=== PATIENT | male | born 1990 | race Caucasian/White ===

== ENCOUNTER 2018-02-21 15:49 | Inpatient (IN) | payer OTHER ==
[~2018-02-21] VITALS: Ht 172.7 cm; Wt 82.3 kg
[2018-02-21 19:30] VITALS: PULSE 85
[2018-02-21 19:55] VITALS: Ht 172.7 cm; Wt 82.3 kg
[2018-02-21 20:00] VITALS: PULSE 88
[2018-02-21 20:13] VITALS: BP 146/84; RESP 20
[2018-02-21] MEDS ORDERED: LORAZEPAM 4 MG/ML VIAL IV PRN ×2 (20:30→22:00)
[2018-02-21] MEDS ORDERED: NACL 0.9% 3 ML SYG IV SCH (20:30)
[2018-02-21] MEDS ORDERED: PANTOPRAZOLE IV 80 MG in SOD CHLORIDE 0.9% 100 ML IVPB ONE (20:30)
[2018-02-21] MEDS: ONDANSETRON 4 MG INJ IV PRN (20:42)
[2018-02-21] MEDS: SOD CHLORIDE 0.9% 1,000 ML IV SCH (20:56)
[2018-02-21] MEDS: THIAMINE 200 MG INJ IM SCH (21:30)
--- NOTE | 2018-02-21 21:43 | HP ---
Date/Time of Note Date/Time of Note DATE: 02/21/18 TIME: 21:36 Assessment/Plan VTE Prophylaxis Risk score (from Nsg)>0 risk: 0 SCD applied (from Ns): Yes Pharmacological prophylaxis: NA/contraindicated Pharm contraindication: bleeding, thrombocytopenia Assessment/Plan Hospital Course This is a 27-year-old male being admitted to the telemetry floor for: #1 acute GI bleed: Secondary likely to bleeding varices versus ulcer versus other. Patient does have a history of heavy alcohol use. He does report having hematemesis as well as melena. Will initiate a Protonix drip and Sandostatin drip. Will check stat CBC and monitor closely every 6 hours. Patient did have a reduced platelet count of approximately 12,000 at the transferring facility and he did receive 1 unit of platelets there. We will recheck platelets and consider additional platelets as indicated. Clear liquid diet. Will consult GI Dr. Soto. #2 alcohol intoxication: Patient at the current time is awake and alert he does appear to be anxious and tremulous. Will start him on Librium as well as as needed Ativan. Thiamine and folate daily. Monitor for signs of DTs. Encouraged cessation. The case management/social work consult #3 alcoholic cirrhosis: Maddrey score is 19. Patient does have a history of no indication for any steroids at the current time. Librium and Ativan. We will need to encourage cessation. Consult GI for further recommendations. #4 history of esophageal varices: Possibly causing #1. Again we will consult GI. Current time we will keep the patient on Protonix drip and Sandostatin drip. #5 severe thrombocytopenia: Patient did present with platelets of approximately 12,000. He received 1 unit transfusion of platelets at the transferring facility. Will repeat CBC, and transfuse additional platelets as indicated. He does appear to have blood in his oral cavity unsure whether this is from his earlier episodes or from gums. #6 anxiety with phobia: The patient reports that he has a history of anxiety in the past and possible phobia of being alone for which is the reason why he dr inks apparently. Consider inpatient psychiatric evaluation. #7 DVT and GI prophylaxis: SCDs, Protonix drip Further treatment strategy will be implemented as per the clinical course. Result Diagram: 02/21/18202902/21/182029 Results 24hrs Laboratory Tests Test 02/21/18 20:30 White Blood Count 4.1 L Red Blood Count 3.74 L Hemoglobin 10.7 L Hematocrit 33.2 L Mean Corpuscular Volume 88.8 Mean Corpuscular Hemoglobin 28.6 L Mean Corpuscular Hemoglobin Concent 32.2 Red Cell Distribution Width 15.4 H Platelet Count 15 *L Mean Platelet Volume 12.9 H Immature Granulocytes % 0.200 Neutrophils % Lymphocytes % Monocytes % Eosinophils % Basophils % Nucleated Red Blood Cells % 0.0 Immature Granulocytes # 0.010 Neutrophils # Lymphocytes # Monocytes # Eosinophils # Basophils # Nucleated Red Blood Cells # Pathologist Review (Hematology) YES Prothrombin Time 15.7 H Prothrombin Time Ratio 1.2 INR International Normalized Ratio 1.23 Activated Partial Thromboplast Time 39.9 H Sodium Level 142 Potassium Level 3.9 Chloride Level 107 Carbon Dioxide Level 22 Anion Gap 13 Blood Urea Nitrogen 5 L Creatinine 0.50 L Est Glomerular Filtrat Rate mL/min > 60 Glucose Level 82 Hemoglobin A1c 5.0 Calcium Level 9.0 Magnesium Level 2.2 Total Bilirubin 1.9 H Direct Bilirubin 0.00 Indirect Bilirubin 1.9 H Aspartate Amino Transf (AST/SGOT) 145 H Alanine Aminotransferase (ALT/SGPT) 71 H Alkaline Phosphatase 123 H Total Protein 9.5 H Albumin 4.7 Globulin 4.80 H Albumin/Globulin Ratio 0.97 Triglycerides Level 88 Cholesterol Level 266 H LDL Cholesterol, Calculated 150 HDL Cholesterol 98 H Cholesterol/HDL Ratio 2.7 Thyroid Stimulating Hormone (TSH) Pending HPI/ROS Admit Date/Time Admit Date/Time Feb 21, 2018 at 19:12 Hx of Present Illness Chief complaint: Weakness vomiting This is a 27-year-old male with a history of alcohol abuse who presented from [facility] with symptoms of weakness and vomiting. He is a daily drinker of 6 pack of beer daily and has a history of hemorrhagic gastritis and esophageal varices based on his EGD as per the transfer document patient. He presented to the [facility] emergency room because of bloody stools and generalized weakness and generalized malaise. He reported that he had been doing fine up until 3 days ago at which point he started having multiple episodes of vomiting. He had 2 episodes of vomiting yesterday that was blood- tinged without blood clots. He also reported that he has noticed some blood in stool over the past 24 hours. Upon my examination the patient when he arrived to [facility] patient reports that his last episode of vomiting blood was yesterday. He reports that he has been drinking for approximately 6 years. He states that drinking helps with his anxiety/PTSD. He reports that he has a phobia to being alone. He has not sought any sort of psychiatric help for this. He does report feeling anxious at the current time and tremulous. Pertinent laboratory findings at the transfer facility showed: CBC White blood cells 3.9 hemoglobin 13.2 platelets 12 hematocrit 40 PT 15.2 Alk phos 113 AST 176 ALT 78 next Patient had a stool guaiac that was positive Ethanol level was 244 The patient was given a total of 1 unit of platelets transfusion prior to being transferred. ROS Const: As per HPI Eyes : No pain discharge or redness or change in visual acuity ENT: No pain, sore throat, congestion, congestion, dysphagia or discharge Respiratory: No shortness of breath, cough, sputum, wheezing, or pleuritic pain Cardiovascular: No chest pain, palpitation, PND, or edema GI : as per HPI Genitourinary: No dysuria, hematuria, flank pain , discharge or CVA tenderness Musculoskeletal: No joint pain, back pain, neck pain, restricted range of motion in neck or joints Skin: No rash, bruising or hives Neuro: No headache, dizziness, syncope, seizure, focal weakness Endocrine: No polyuria, polydipsia, temperature intolerance Psych: As per HPI PMH/Family/Social Past Medical History Chronic alcohol abuse, alcoholic cirrhosis, portal gastropathy, esophageal varices, hemorrhagic gastritis, number cytopenia, alcohol withdrawal seizures, anemia Medications Current Medications Sodium Chloride 1,000 ml @ 50 mls/hr Q20H IV Last administered on 02/21/18at 20:56; Admin Dose 50 MLS/HR; Start 02/21/18 at 20:07 IV Flush (NS 3 ml) 3 ml PER PROTOCOL IV ; Start 02/21/18 at 20:30 Lorazepam (Ativan) 0.5 mg Q6H PRN IV ANXIETY Last administered on 02/21/18at 20:43; Admin Dose 0.5 MG; Start 02/21/18 at 20:30 Ondansetron HCl (Zofran Inj) 4 mg Q6H PRN IV NAUSEA AND/OR VOMITING Last administered on 02/21/18at 20:42; Admin Dose 4 MG; Start 02/21/18 at 20:30 Metoclopramide HCl (Reglan) 10 mg Q6H PRN IV NAUSEA AND/OR VOMITING; Start 02/21/18 at 20:30 Pantoprazole (Protonix Iv) 40 mg DAILY@06 IV ; Start 02/22/18 at 06:00 Thiamine HCl (Vitamin B1) 200 mg DAILY IM ; Start 02/21/18 at 21:30; Stop 02/26/18 at 21:29 Folic Acid (Folic Acid) 1 mg DAILY PO ; Start 02/21/18 at 20:30 Coded Allergies: No Known Allergy (Unverified , 02/21/18) Past Surgical History Past Surgical Hx: no surgical history Family History Significant Family History: no pertinent family hx Social History Alcohol Use: heavy Smoking Status: Never smoker Drug Use: none Exam/Review of Systems Vital Signs Vitals Vital Signs Date Temp Pulse Resp B/P (MAP) Pulse Ox O2 O2 Flow FiO2 Time Delivery Rate 02/21/18 98.4 20 146/84 98 20:13 (104) 02/21/18 88 20:00 Exam Exam General: Patient is a pleasant male currently sitting in bed he does appear to be anxious and tremulous, does not appear to be in any acute distress HEENT: Atraumatic, normocephalic. The pupils are equal, round and reactive. Extraocular motor are intact, blood-tinge noted around the teeth Neck: Supple with full range of motion. No rigidity or meningismus Chest: Nontender Lungs: Clear to auscultation bilaterally no crackles rales or wheezing Heart: Normal S1-S2, Regular rhythm and rate. No murmur, S3, or S4 Abdomen: Soft , nontender, nondistended , bowel sounds are present. No guarding no rebound tenderness , No masses or organomegaly. No costovertebral temporal angle mass Extremities: Normal to inspection, no edema no cyanosis Neurologic: Normal mental status, speech normal, cranial nerves II through XII are intact, motor and sensory are intact, Psych: Patient does appear to be anxious and tremulous EVELYN CALLE Feb 21, 2018 21:43
[2018-02-21] MEDS: CHLORDIAZEPOXIDE 25 MG CAP PO SCH (22:51)
[2018-02-21] MEDS: FOLIC ACID 1 MG TAB PO SCH (22:51)
[2018-02-21] MEDS ORDERED: OCTREOTIDE 50 MCG in SOD CHLORIDE 0.9% 50 ML IVPB ONE (23:00)
[2018-02-21 23:58] VITALS: BP 117/61; RESP 20
[2018-02-22] VITALS (11 sets, daily range): BP systolic 95–139; BP diastolic 60–75; PULSE 65–86; RESP 18–20
--- NOTE | 2018-02-22 | NUR ---
NURSING NOTE: ENDORSED CONTINUUM OF CARE TO BHARGAV ALATORRE Addendum: 02/22/18 at 0350 by ANA YUAN RN ENDORSED CONTINUUM OF CARE TO YOKO ALATORRE
[2018-02-22] MEDS ORDERED: LORAZEPAM 4 MG/ML VIAL IV PRN (00:30)
[2018-02-22] MEDS: OCTREOTIDE 1 MG in DEXTROSE 5% 95 ML IV SCH ×2 (00:31→18:09)
[2018-02-22] MEDS: ONDANSETRON 4 MG INJ IV PRN ×2 (02:44→14:25)
[2018-02-22] MEDS: LORAZEPAM 4 MG/ML VIAL IV PRN ×2 (05:30→21:03)
[2018-02-22] MEDS: PANTOPRAZOLE 40 MG INJ IV SCH (05:31)
--- NOTE | 2018-02-22 06:30 | NUR ---
End of Shift Summary Pt has been nauseous during the night. Pt had one episode of vomiting. Please see pt assessment and EMAR.
[2018-02-22] MEDS: CHLORDIAZEPOXIDE 25 MG CAP PO SCH ×3 (08:33→21:02)
[2018-02-22] MEDS: FOLIC ACID 1 MG TAB PO SCH (08:33)
[2018-02-22] MEDS: METOCLOPRAMIDE 10 MG INJ IV PRN ×2 (08:34→21:03)
[2018-02-22] MEDS: THIAMINE 200 MG INJ IM SCH (08:34)
[2018-02-22] MEDS ORDERED: FOLIC ACID 1 MG TAB PO SCH (12:00)
--- NOTE | 2018-02-22 12:10 | PN ---
Date/Time of Note Date/Time of Note DATE: 02/22/18 TIME: 12:07 Assessment/Plan VTE Prophylaxis Risk score (from [facility])>0 risk: 1 SCD applied (from [facility]): Yes Pharmacological prophylaxis: NA/contraindicated Pharm contraindication: bleeding Lines/Catheters IV [facility] (from [facility]): Peripheral IV Assessment/Plan Problems: (1) GI bleed Status: Acute Comment: Follow CBC and can ask gastroenterology to see the patient consultation given the known history of varices Qualifiers: Gastritis type: alcoholic (2) Esophageal varices Status: Chronic Comment: Possibly with bleeding. Continue treatment aggressively Qualifiers: Esophageal varices type: secondary Esophageal varices bleeding: with bleeding Qualified Codes: I85.11 - Secondary esophageal varices with bleeding (3) Thrombocytopenia Status: Acute Comment: I believe some of this is from the liver but I also believe some of this is an acute toxic metabolic effect of the alcohol on the bone marrow (4) Alcoholic cirrhosis of liver Status: Chronic Comment: Noted. Attempt to arrange for treatment of the underlying anxiety disorder and for outpatient rehabilitation Qualifiers: Ascites presence: without ascites Qualified Codes: K70.30 - Alcoholic cirrhosis of liver without ascites (5) Moderate early onset dysthymic disorder, in partial remission, with anxious distress, with pure dysthymic syndrome Status: Chronic Comment: In need of treatment. (6) Hyperlipidemia Status: Chronic Comment: Noted. Treatment for this after we have got the other issues settled Qualifiers: Hyperlipidemia type: unspecified Qualified Codes: E78.5 - Hyperlipidemia, unspecified (7) Alcohol abuse Status: Chronic Comment: Strongly counseled. Result Diagram: 02/22/18 0556 02/21/182029 Results 24hrs Laboratory Tests Test 02/21/18 20:30 02/22/18 05:56 White Blood Count 4.1 L 4.2 L Red Blood Count 3.74 L 3.49 L Hemoglobin 10.7 L 10.3 L Hematocrit 33.2 L 31.0 L Mean Corpuscular Volume 88.8 88.8 Mean Corpuscular Hemoglobin 28.6 L 29.5 Mean Corpuscular Hemoglobin Concent 32.2 33.2 Red Cell Distribution Width 15.4 H 15.2 H Platelet Count 15 *L 38 #L Mean Platelet Volume 12.9 H 11.1 H Immature Granulocytes % 0.200 0.200 Neutrophils % 71.6 Segmented Neutrophils % (Manual) 64 Lymphocytes % 16.7 Lymphocytes % (Manual) 29 Reactive Lymphocytes % (Manual) 1 H Monocytes % 9.5 Monocytes % (Manual) 3 Eosinophils % 1.0 Eosinophils % (Manual) 2 Basophils % 1.0 Basophils % (Manual) 1 Nucleated Red Blood Cells % 0.0 0.0 Immature Granulocytes # 0.010 0.010 Neutrophils # 3.0 Lymphocytes (Manual) 1.1 Lymphocytes # 0.7 L Reactive Lymphocytes # 0.0 Monocytes # 0.4 Monocytes # (Manual) 0.1 L Eosinophils # 0.0 Basophils # 0.0 Basophils # (Manual) 0.0 Nucleated Red Blood Cells # 0.0 Pathologist Review (Hematology) YES Giant Platelets 1 H Prothrombin Time 15.7 H Prothrombin Time Ratio 1.2 INR International Normalized Ratio 1.23 Activated Partial Thromboplast Time 39.9 H Sodium Level 142 Potassium Level 3.9 Chloride Level 107 Carbon Dioxide Level 22 Anion Gap 13 Blood Urea Nitrogen 5 L Creatinine 0.50 L Est Glomerular Filtrat Rate mL/min > 60 Glucose Level 82 Hemoglobin A1c 5.0 Calcium Level 9.0 Magnesium Level 2.2 Total Bilirubin 1.9 H Direct Bilirubin 0.00 Indirect Bilirubin 1.9 H Aspartate Amino Transf (AST/SGOT) 145 H Alanine Aminotransferase (ALT/SGPT) 71 H Alkaline Phosphatase 123 H Total Protein 9.5 H Albumin 4.7 Globulin 4.80 H Albumin/Globulin Ratio 0.97 Triglycerides Level 88 Cholesterol Level 266 H LDL Cholesterol, Calculated 150 HDL Cholesterol 98 H Cholesterol/HDL Ratio 2.7 Thyroid Stimulating Hormone (TSH) 1.110 Hepatitis B Surface Antigen NEGATIVE Hepatitis B Surface Antibody POSITIVE H Hepatitis B Core Total Antibody NEGATIVE Hepatitis C Antibody NEGATIVE Subjective 24 Hr Interval Summary Free Text/Dictation She notes anxiety and is concerned for the GI bleed. Constitutional: no complaints Cardiovascular: no complaints Gastrointestinal: pain Genitourinary: no complaints Psychological: anxiety Exam/Review of Systems Vital Signs Vitals Vital Signs Date Temp Pulse Resp B/P (MAP) Pulse Ox O2 O2 Flow FiO2 Time Delivery Rate 02/22/18 97.9 86 18 95/61 (72) 100 Mechanical 11:40 Ventilator Intake and Output 02/21/18 02/21/18 02/22/18 1414:59 22:59 06:59 OutputOutput Total 250 ml BalanceBalance -250 ml Exam Constitutional: alert, oriented Psych: anxiety Neck: supple, non-tender Respiratory: clear to auscultation, normal air movement Cardiovascular: regular rate and rhythm, nl pulses Gastrointestinal: soft, non-tender, hepatomegaly Medications Medications Current Medications Sodium Chloride 1,000 ml @ 50 mls/hr Q20H IV Last administered on 02/21/18at 20:56; Admin Dose 50 MLS/HR; Start 02/21/18 at 20:07 IV Flush (NS 3 ml) 3 ml PER PROTOCOL IV ; Start 02/21/18 at 20:30 Ondansetron HCl (Zofran Inj) 4 mg Q6H PRN IV NAUSEA AND/OR VOMITING Last administered on 02/22/18at 02:44; Admin Dose 4 MG; Start 02/21/18 at 20:30 Metoclopramide HCl (Reglan) 10 mg Q6H PRN IV NAUSEA AND/OR VOMITING Last administered on 02/22/18at 08:34; Admin Dose 10 MG; Start 02/21/18 at 20:30 Pantoprazole (Protonix Iv) 40 mg DAILY@06 IV Last administered on 02/22/18 05:31; Admin Dose 40 MG; Start 02/22/18 at 06:00 Thiamine HCl (Vitamin B1) 200 mg DAILY IM Last administered on 02/22/18 08:34; Admin Dose 200 MG; Start 02/21/18 at 21:30; Stop 02/26/18 at 21:29 Folic Acid (Folic Acid) 1 mg DAILY PO Last administered on 02/22/18at 08:33; Admin Dose 1 MG; Start 02/21/18 at 20:30 Octreotide Acetate 1 mg/ Dextrose 100 ml @ 5 mls/hr Q20H IV Last administered on 02/22/18 00:31; Admin Dose 5 MLS/HR; Start 02/21/18 at 23:00 Lorazepam (Ativan) 2 mg Q4H PRN IV severe withdrawl symptoms; Start 02/21/18 at 22:00 Chlordiazepoxide (Librium) 50 mg TID PO Last administered on 02/22/18at 08:33; Admin Dose 50 MG; Start 02/21/18 at 22:30; Stop 02/22/18 at 20:59 Chlordiazepoxide (Librium) 25 mg QID PO ; Start 02/22/18 at 21:00; Stop 02/23/18 at 20:59 Chlordiazepoxide (Librium) 25 mg TID PO ; Start 02/23/18 at 21:00; Stop 02/24/18 at 20:59 Lorazepam (Ativan) 1 mg Q4H PRN IV WITHDRAWL SYMPTOMS Last administered on 02/22/18at 05:30; Admin Dose 1 MG; Start 02/21/18 at 22:30 Cyanocobalamin (Vitamin B12) 500 mcg DAILY PO ; Start 02/22/18 at 12:00; Status UNV Folic Acid (Folic Acid) 1 mg DAILY PO ; Start 02/22/18 at 12:00; Status UNV NABIL VYAS MD Feb 22, 2018 12:10
--- NOTE | 2018-02-22 12:37 | CONS ---
Date/Time of Note Date/Time of Note DATE: 02/22/18 TIME: 12:30 Assessment/Plan Assessment/Plan Hospital Course Assessment: Hematemesis Normocytic anemia Alcoholic liver cirrhosis -MELD Indirect hyperbilirubinemia Elevated liver enzymes Thrombocytopenia History of esophageal varices Alcohol abuse-last drink 02/20/18 Plan: Clear liquid diet Continue Gtt Plan for EGD in near future Consult has already been placed for social work professor, evaluation for rehab Patient seen in collaboration with Dr. Reyes Result Diagram: 02/22/18 0556 02/21/18 2030 Results 24hrs Laboratory Tests Test 02/21/18 20:30 02/22/18 05:56 White Blood Count 4.1 L 4.2 L Red Blood Count 3.74 L 3.49 L Hemoglobin 10.7 L 10.3 L Hematocrit 33.2 L 31.0 L Mean Corpuscular Volume 88.8 88.8 Mean Corpuscular Hemoglobin 28.6 L 29.5 Mean Corpuscular Hemoglobin Concent 32.2 33.2 Red Cell Distribution Width 15.4 H 15.2 H Platelet Count 15 *L 38 #L Mean Platelet Volume 12.9 H 11.1 H Immature Granulocytes % 0.200 0.200 Neutrophils % 71.6 Segmented Neutrophils % (Manual) 64 Lymphocytes % 16.7 Lymphocytes % (Manual) 29 Reactive Lymphocytes % (Manual) 1 H Monocytes % 9.5 Monocytes % (Manual) 3 Eosinophils % 1.0 Eosinophils % (Manual) 2 Basophils % 1.0 Basophils % (Manual) 1 Nucleated Red Blood Cells % 0.0 0.0 Immature Granulocytes # 0.010 0.010 Neutrophils # 3.0 Lymphocytes (Manual) 1.1 Lymphocytes # 0.7 L Reactive Lymphocytes # 0.0 Monocytes # 0.4 Monocytes # (Manual) 0.1 L Eosinophils # 0.0 Basophils # 0.0 Basophils # (Manual) 0.0 Nucleated Red Blood Cells # 0.0 Pathologist Review (Hematology) YES Giant Platelets 1 H Prothrombin Time 15.7 H Prothrombin Time Ratio 1.2 INR International Normalized Ratio 1.23 Activated Partial Thromboplast Time 39.9 H Sodium Level 142 Potassium Level 3.9 Chloride Level 107 Carbon Dioxide Level 22 Anion Gap 13 Blood Urea Nitrogen 5 L Creatinine 0.50 L Est Glomerular Filtrat Rate mL/min > 60 Glucose Level 82 Hemoglobin A1c 5.0 Calcium Level 9.0 Magnesium Level 2.2 Total Bilirubin 1.9 H Direct Bilirubin 0.00 Indirect Bilirubin 1.9 H Aspartate Amino Transf (AST/SGOT) 145 H Alanine Aminotransferase (ALT/SGPT) 71 H Alkaline Phosphatase 123 H Total Protein 9.5 H Albumin 4.7 Globulin 4.80 H Albumin/Globulin Ratio 0.97 Triglycerides Level 88 Cholesterol Level 266 H LDL Cholesterol, Calculated 150 HDL Cholesterol 98 H Cholesterol/HDL Ratio 2.7 Thyroid Stimulating Hormone (TSH) 1.110 Hepatitis B Surface Antigen NEGATIVE Hepatitis B Surface Antibody POSITIVE H Hepatitis B Core Total Antibody NEGATIVE Hepatitis C Antibody NEGATIVE CC: PENNY REYES ; Consultation Date/Type/Reason Admit Date/Time Feb 21, 2018 at 19:12 Date of Consultation: Feb 22, 2018 Type of Consult GI Reason for Consultation Hematemesis Liver cirrhosis Hx of Present Illness This is a 27-year-old male with past medical history of alcoholic liver cirrhosis, history of esophageal varices, history of upper GI bleed, history of alcohol abuse last drink 02/20/18 who presented to the hospital with complaints of hematemesis. With workup patient noted to have pancytopenia, is status post platelet pheresis with increase in platelet count from 15-38 today. Hepatitis serology was obtained patient showing immunity to hepatitis B negative for hepat itis C, hepatitis A is currently pending, mild coagulopathy INR 1.23 and elevated LFTs with and direct hyperbilirubinemia. Time of evaluation patient is currently on octreotide drip he denies further episodes of nausea/vomiting, no complaints of abdominal pain. We will maintain close observation and simply plan for EGD near future likely Saturday. Review of Systems: A 12 system, review was conducted and is negative except as noted in the HPI or here. Past Medical History Medications Current Medications Sodium Chloride 1,000 ml @ 50 mls/hr Q20H IV Last administered on 02/21/18at 20:56; Admin Dose 50 MLS/HR; Start 02/21/18 at 20:07 IV Flush (NS 3 ml) 3 ml PER PROTOCOL IV ; Start 02/21/18 at 20:30 Ondansetron HCl (Zofran Inj) 4 mg Q6H PRN IV NAUSEA AND/OR VOMITING Last administered on 02/22/18at 02:44; Admin Dose 4 MG; Start 02/21/18 at 20:30 Metoclopramide HCl (Reglan) 10 mg Q6H PRN IV NAUSEA AND/OR VOMITING Last administered on 02/22/18at 08:34; Admin Dose 10 MG; Start 02/21/18 at 20:30 Pantoprazole (Protonix Iv) 40 mg DAILY@06 IV Last administered on 02/22/18at 05:31; Admin Dose 40 MG; Start 02/22/18 at 06:00 Thiamine HCl (Vitamin B1) 200 mg DAILY IM Last administered on 02/22/18at 08:34; Admin Dose 200 MG; Start 02/21/18 at 21:30; Stop 02/26/18 at 21:29 Folic Acid (Folic Acid) 1 mg DAILY PO Last administered on 02/22/18at 08:33; Admin Dose 1 MG; Start 02/21/18 at 20:30 Octreotide Acetate 1 mg/ Dextrose 100 ml @ 5 mls/hr Q20H IV Last administered on 02/22/18at 00:31; Admin Dose 5 MLS/HR; Start 02/21/18 at 23:00 Lorazepam (Ativan) 2 mg Q4H PRN IV severe withdrawl symptoms; Start 02/21/18 at 22:00 Chlordiazepoxide (Librium) 50 mg TID PO Last administered on 02/22/18at 08:33; Admin Dose 50 MG; Start 02/21/18 at 22:30; Stop 02/22/18 at 20:59 Chlordiazepoxide (Librium) 25 mg QID PO ; Start 02/22/18 at 21:00; Stop 02/23/18 at 20:59 Chlordiazepoxide (Librium) 25 mg TID PO ; Start 02/23/18 at 21:00; Stop 02/24/18 at 20:59 Lorazepam (Ativan) 1 mg Q4H PRN IV WITHDRAWL SYMPTOMS Last administered on 02/22/18at 05:30; Admin Dose 1 MG; Start 02/21/18 at 22:30 Cyanocobalamin (Vitamin B12) 500 mcg DAILY PO ; Start 02/22/18 at 12:00 Mirtazapine (Remeron) 15 mg HS PO ; Start 02/22/18 at 21:00 Allergies: Coded Allergies: No Known Allergy (Unverified , 02/21/18) Past Surgical History Past Surgical Hx: no surgical history Social History Alcohol Use: heavy Smoking Status: Never smoker Drug Use: none Exam/Review of Systems Vital Signs Vitals Vital Signs Date Temp Pulse Resp B/P (MAP) Pulse Ox O2 O2 Flow FiO2 Time Delivery Rate 02/22/18 97.9 86 18 95/61 (72) 100 Mechanical 11:40 Ventilator Intake and Output 02/21/18 02/21/18 02/22/18 1515:00 23:00 07:00 OutputOutput Total 250 ml BalanceBalance -250 ml Exam Constitutional: alert, oriented Psych: no complaints, nl mood/affect Head: normocephalic ENMT: nl external ears & nose Neck: supple, non-tender Respiratory: clear to auscultation Cardiovascular: regular rate and rhythm Gastrointestinal: soft, bowel sounds; No distended, No firm, No mass, No rebound or guarding, No splenomegaly, No surgical scars Musculoskeletal: nl extremities to inspection Medications Medications Current Medications Sodium Chloride 1,000 ml @ 50 mls/hr Q20H IV Last administered on 02/21/18at 20:56; Admin Dose 50 MLS/HR; Start 02/21/18 at 20:07 IV Flush (NS 3 ml) 3 ml PER PROTOCOL IV ; Start 02/21/18 at 20:30 Ondansetron HCl (Zofran Inj) 4 mg Q6H PRN IV NAUSEA AND/OR VOMITING Last administered on 02/22/18at 02:44; Admin Dose 4 MG; Start 02/21/18 at 20:30 Metoclopramide HCl (Reglan) 10 mg Q6H PRN IV NAUSEA AND/OR VOMITING Last a dministered on 02/22/18at 08:34; Admin Dose 10 MG; Start 02/21/18 at 20:30 Pantoprazole (Protonix Iv) 40 mg DAILY@06 IV Last administered on 02/22/18at 05:31; Admin Dose 40 MG; Start 02/22/18 at 06:00 Thiamine HCl (Vitamin B1) 200 mg DAILY IM Last administered on 02/22/18at 08:34; Admin Dose 200 MG; Start 02/21/18 at 21:30; Stop 02/26/18 at 21:29 Folic Acid (Folic Acid) 1 mg DAILY PO Last administered on 02/22/18at 08:33; Admin Dose 1 MG; Start 02/21/18 at 20:30 Octreotide Acetate 1 mg/ Dextrose 100 ml @ 5 mls/hr Q20H IV Last administered on 02/22/18at 00:31; Admin Dose 5 MLS/HR; Start 02/21/18 at 23:00 Lorazepam (Ativan) 2 mg Q4H PRN IV severe withdrawl symptoms; Start 02/21/18 at 22:00 Chlordiazepoxide (Librium) 50 mg TID PO Last administered on 02/22/18at 08:33; Admin Dose 50 MG; Start 02/21/18 at 22:30; Stop 02/22/18 at 20:59 Chlordiazepoxide (Librium) 25 mg QID PO ; Start 02/22/18 at 21:00; Stop 02/23/18 at 20:59 Chlordiazepoxide (Librium) 25 mg TID PO ; Start 02/23/18 at 21:00; Stop 02/24/18 at 20:59 Lorazepam (Ativan) 1 mg Q4H PRN IV WITHDRAWL SYMPTOMS Last administered on 02/22/18at 05:30; Admin Dose 1 MG; Start 02/21/18 at 22:30 Cyanocobalamin (Vitamin B12) 500 mcg DAILY PO ; Start 02/22/18 at 12:00 Mirtazapine (Remeron) 15 mg HS PO ; Start 02/22/18 at 21:00 YARI CARRILLO Feb 22, 2018 12:37
[2018-02-22] MEDS: CYANOCOBALAMIN 500 MCG TAB PO SCH (14:25)
--- NOTE | 2018-02-22 14:59 | NUR ---
SS Note: SS Consult SWer met w/ pt at bedside to discuss admitting presentation, informal support, d/c plan and if needed linkage to [facility] and community services. Pt's a 27 y/o male presenting w/ ETOH requesting assistance w/ outpt services for alcohol abuse. Pt lives w/ family members and spouse, drives a car and denies having legal issues. Pt attended AA Meetings in the past but, stopped attending states he plans to reconvene w/ AA meetings upon d/c. Pt has [employer] insurance, gainfully employed and enrolled into [facility]'s residential tx program 1 year ago, signed after 6 weeks of tx. Pt's coping w/ tx's, plans to return home upon d/c and follow up w/ AA. Transportation will be provided by spouse, DCP pending status, SWer to remain available for f/u and assistance as needed. CM aware.
[2018-02-22] MEDS: SOD CHLORIDE 0.9% 1,000 ML IV SCH (16:36)
--- NOTE | 2018-02-22 18:27 | NUR ---
EOSS AO x4, vVS within range, SR on the monitor, no signs of bleeding or distress observed during shift. All needs met at bedside. Will endorse.
[2018-02-22] MEDS: MIRTAZAPINE 15 MG TAB PO SCH (21:02)
[2018-02-23] VITALS (11 sets, daily range): BP systolic 101–127; BP diastolic 57–76; PULSE 59–95; RESP 18–20
[2018-02-23] MEDS: PANTOPRAZOLE 40 MG INJ IV SCH (06:06)
[2018-02-23] MEDS: LORAZEPAM 4 MG/ML VIAL IV PRN ×3 (06:32→21:13)
[2018-02-23] MEDS: METOCLOPRAMIDE 10 MG INJ IV PRN ×2 (06:32→21:13)
--- NOTE | 2018-02-23 06:43 | NUR ---
End of Shift Summary No change in pt condition. See pt assessment and EMAR.
[2018-02-23] MEDS: FOLIC ACID 1 MG TAB PO SCH (10:31)
[2018-02-23] MEDS: CHLORDIAZEPOXIDE 25 MG CAP PO SCH ×4 (10:31→21:31)
[2018-02-23] MEDS: THIAMINE 200 MG INJ IM SCH (10:31)
[2018-02-23] MEDS: CYANOCOBALAMIN 500 MCG TAB PO SCH (10:31)
--- NOTE | 2018-02-23 11:50 | PN ---
Date/Time of Note Date/Time of Note DATE: 02/23/18 TIME: 11:45 Assessment/Plan VTE Prophylaxis Risk score (from Nsg)>0 risk: 0 SCD applied (from Nsg): Yes Pharmacological prophylaxis: other (scds) Lines/Catheters IV Catheter Type (from Nrsg): Peripheral IV Assessment/Plan Hospital Course Assessment: Hematemesis- resolved Normocytic anemia Alcoholic liver cirrhosis -MELD 13 Indirect hyperbilirubinemia -Liver Us- No evidence of cholelithiasis, cholecystitis or biliary obstruction. CBD 3.2 cm Elevated liver enzymes Thrombocytopenia History of esophageal varices Alcohol abuse-last drink 02/20/18 Plan: Clear liquid diet- today NPO after midnight Plan for EGD tomorrow will give 1 unit of Plt this evening - goal for plt count is 50 or higher for possible banding during EGD tomorrow Consult has already been placed for social and human services assistant, evaluation for rehab Patient seen in collaboration with Dr. James Subjective: Pt states he feels ok, c/o some nausea No overt sign of GI bleed, currently denies abd pain. Free text: Discussed plan for EGD tomorrow, reviewed risk/benefits and alternatives of sedation and procedure Patient verbalized understanding is agreeable to procedure. Exam Constitutional: alert, oriented Psych: no complaints, nl mood/affect Head: normocephalic ENMT: nl external ears & nose Neck: supple, non-tender Respiratory: clear to auscultation Cardiovascular: regular rate and rhythm Gastrointestinal: soft, bowel sounds; No distended, No firm, No mass, No rebound or guarding, No splenomegaly, No surgical scars Musculoskeletal: nl extremities to inspection Result Diagram: 02/23/18 0620 02/23/18 0620 Results 24hrs Laboratory Tests Test 02/22/18 13:16 02/22/18 13:17 02/22/18 16:08 02/23/18 06:20 Hepatitis A POSITIVE H Antibody Total White Blood 3.3 #L 3.3 L 4.0 #L Count Red Blood Count 3.55 L 3.60 L 3.76 L Hemoglobin 10.4 L 10.5 L 11.1 L Hematocrit 31.4 L 31.7 L 33.6 L Mean Corpuscular 88.5 88.1 89.4 Volume Mean Corpuscular 29.3 29.2 29.5 Hemoglobin Mean Corpuscular 33.1 33.1 33.0 Hemoglobin Fabiola nt Red Cell 14.9 H 15.0 H 15.1 H Distribution Width Platelet Count 34 L 35 L 32 L Mean Platelet 9.6 11.8 #H 10.7 H Volume Immature 0.300 0.300 0.300 Granulocytes % Neutrophils % 63.8 62.9 65.0 Lymphocytes % 21.3 19.5 19.6 Monocytes % 11.9 H 14.0 H 10.8 Eosinophils % 1.5 2.4 3.5 Basophils % 1.2 0.9 0.8 Nucleated Red 0.0 0.0 0.0 Blood Cells % Immature 0.010 0.010 0.010 Granulocytes # Neutrophils # 2.1 2.1 2.6 Lymphocytes # 0.7 L 0.6 L 0.8 Monocytes # 0.4 0.5 0.4 Eosinophils # 0.1 0.1 0.1 Basophils # 0.0 0.0 0.0 Nucleated Red 0.0 0.0 0.0 Blood Cells # Prothrombin Time 16.0 H Prothrombin Time 1.3 Ratio INR 1.26 International Normalized Ratio Sodium Level 139 Potassium Level 4.1 Chloride Level 99 Carbon Dioxide 26 Level Anion Gap 14 H Blood Urea 10 Nitrogen Creatinine 0.70 Est Glomerular > 60 Filtrat Rate mL/min Glucose Level 109 Calcium Level 9.4 Magnesium Level 2.0 Total Bilirubin 2.9 H Direct Bilirubin 0.00 Indirect 2.9 H Bilirubin Aspartate Amino 114 H Transf (AST/SGOT ) Alanine 56 Aminotransferase (ALT/SGPT) Alkaline 95 Phosphatase Total Protein 8.7 H Albumin 4.6 Globulin 4.10 H Albumin/Globulin 1.12 Ratio Alpha 5.61 Fetoprotein Exam/Review of Systems Vital Signs Vitals Vital Signs Date Temp Pulse Resp B/P (MAP) Pulse Ox O2 O2 Flow FiO2 Time Delivery Rate 02/23/18 86 08:55 02/23/18 98.2 18 101/57 94 Nasal 07:35 (72) Cannula Intake and Output 02/22/18 02/22/18 02/23/18 1515:00 23:00 07:00 IntakeIntake Total 620 ml 500 ml OutputOutput Total 850 ml 1650 ml BalanceBalance -230 ml -1150 ml Medications Medications Current Medications Sodium Chloride 1,000 ml @ 50 mls/hr Q20H IV Last administered on 02/22/18at 16:36; Admin Dose 50 MLS/HR; Start 02/21/18 at 20:07 IV Flush (NS 3 ml) 3 ml PER PROTOCOL IV ; Start 02/21/18 at 20:30 Ondansetron HCl (Zofran Inj) 4 mg Q6H PRN IV NAUSEA AND/OR VOMITING Last administered on 02/22/18 14:25; Admin Dose 4 MG; Start 02/21/18 at 20:30 Metoclopramide HCl (Reglan) 10 mg Q6H PRN IV NAUSEA AND/OR VOMITING Last administered on 02/23/18 06:32; Admin Dose 10 MG; Start 02/21/18 at 20:30 Pantoprazole (Protonix Iv) 40 mg DAILY@06 IV Last administered on 02/23/18 06:06; Admin Dose 40 MG; Start 02/22/18 at 06:00 Thiamine HCl (Vitamin B1) 200 mg DAILY IM Last administered on 02/23/18 10:31; Admin Dose 200 MG; Start 02/21/18 at 21:30; Stop 02/26/18 at 21:29 Folic Acid (Folic Acid) 1 mg DAILY PO Last administered on 02/23/18 10:31; Admin Dose 1 MG; Start 02/21/18 at 20:30 Octreotide Acetate 1 mg/ Dextrose 100 ml @ 5 mls/hr Q20H IV Last administered on 02/22/18at 18:09; Admin Dose 5 MLS/HR; Start 02/21/18 at 23:00 Lorazepam (Ativan) 2 mg Q4H PRN IV severe withdrawl symptoms; Start 02/21/18 at 22:00 Chlordiazepoxide (Librium) 25 mg QID PO Last administered on 02/23/18 10:31; Admin Dose 25 MG; Start 02/22/18 at 21:00; Stop 02/23/18 at 20:59 Chlordiazepoxide (Librium) 25 mg TID PO ; Start 02/23/18 at 21:00; Stop 02/24/18 at 20:59 Lorazepam (Ativan) 1 mg Q4H PRN IV WITHDRAWL SYMPTOMS Last administered on 02/23/18 06:32; Admin Dose 1 MG; Start 02/21/18 at 22:30 Cyanocobalamin (Vitamin B12) 500 mcg DAILY PO Last administered on 02/23/18at 10:31; Admin Dose 500 MCG; Start 02/22/18 at 12:00 Mirtazapine (Remeron) 15 mg HS PO Last administered on 02/22/18at 21:02; Admin Dose 15 MG; Start 02/22/18 at 21:00 YARI CARRILLO Feb 23, 2018 11:50
[2018-02-23] MEDS: OCTREOTIDE 1 MG in DEXTROSE 5% 95 ML IV SCH (12:46)
[2018-02-23] MEDS: SOD CHLORIDE 0.9% 1,000 ML IV SCH (12:46)
--- NOTE | 2018-02-23 12:52 | PN ---
Date/Time of Note Date/Time of Note DATE: 02/23/18 TIME: 12:49 Assessment/Plan VTE Prophylaxis Risk score (from [facility])>0 risk: 0 SCD applied (from [facility]): Yes SCD contraindicated: low risk/ambulating Pharmacological prophylaxis: NA/contraindicated Pharm contraindication: bleeding Lines/Catheters IV Catheter Type (from [facility]): Peripheral IV Assessment/Plan Problems: (1) GI bleed Status: Acute Comment: Fortunately stable at this time. Continue to monitor but I do not think the organ to get a whole lot more improvement in thrombocytopenia Qualifiers: Gastritis type: alcoholic (2) Alcoholic cirrhosis of liver Status: Chronic Comment: Noted. Continue careful management and hope for the best. Qualifiers: Ascites presence: without ascites Qualified Codes: K70.30 - Alcoholic cirrhosis of liver without ascites (3) Esophageal varices Status: Chronic Comment: For EGD tomorrow. He will need platelets as I do not think that organ to get much more improvement in his total platelet count given the underlying medical illnesses. Please note if he were to be abstinent for a period of at least 6 months I think we get a lot more return Qualifiers: Esophageal varices type: secondary Esophageal varices bleeding: with bleeding Qualified Codes: I85.11 - Secondary esophageal varices with bleeding (4) Thrombocytopenia Status: Acute Comment: As above. (5) Hyperlipidemia Status: Chronic Comment: Noted. Qualifiers: Hyperlipidemia type: unspecified Qualified Codes: E78.5 - Hyperlipidemia, unspecified (6) Moderate early onset dysthymic disorder, in partial remission, with anxious distress, with pure dysthymic syndrome Status: Chronic Comment: Presently stable Result Diagram: 02/23/18 0620 02/23/18 0620 Results 24hrs Laboratory Tests Test 02/22/18 13:16 02/22/18 13:17 02/22/18 16:08 02/23/18 06:20 Hepatitis A POSITIVE H Antibody Total White Blood 3.3 #L 3.3 L 4.0 #L Count Red Blood Count 3.55 L 3.60 L 3.76 L Hemoglobin 10.4 L 10.5 L 11.1 L Hematocrit 31.4 L 31.7 L 33.6 L Mean Corpuscular 88.5 88.1 89.4 Volume Mean Corpuscular 29.3 29.2 29.5 Hemoglobin Mean Corpuscular 33.1 33.1 33.0 Hemoglobin Fabiola nt Red Cell 14.9 H 15.0 H 15.1 H Distribution Width Platelet Count 34 L 35 L 32 L Mean Platelet 9.6 11.8 #H 10.7 H Volume Immature 0.300 0.300 0.300 Granulocytes % Neutrophils % 63.8 62.9 65.0 Lymphocytes % 21.3 19.5 19.6 Monocytes % 11.9 H 14.0 H 10.8 Eosinophils % 1.5 2.4 3.5 Basophils % 1.2 0.9 0.8 Nucleated Red 0.0 0.0 0.0 Blood Cells % Immature 0.010 0.010 0.010 Granulocytes # Neutrophils # 2.1 2.1 2.6 Lymphocytes # 0.7 L 0.6 L 0.8 Monocytes # 0.4 0.5 0.4 Eosinophils # 0.1 0.1 0.1 Basophils # 0.0 0.0 0.0 Nucleated Red 0.0 0.0 0.0 Blood Cells # Prothrombin Time 16.0 H Prothrombin Time 1.3 Ratio INR 1.26 International Normalized Ratio Sodium Level 139 Potassium Level 4.1 Chloride Level 99 Carbon Dioxide 26 Level Anion Gap 14 H Blood Urea 10 Nitrogen Creatinine 0.70 Est Glomerular > 60 Filtrat Rate mL/min Glucose Level 109 Calcium Level 9.4 Magnesium Level 2.0 Total Bilirubin 2.9 H Direct Bilirubin 0.00 Indirect 2.9 H Bilirubin Aspartate Amino 114 H Transf (AST/SGOT ) Alanine 56 Aminotransferase (ALT/SGPT) Alkaline 95 Phosphatase Total Protein 8.7 H Albumin 4.6 Globulin 4.10 H Albumin/Globulin 1.12 Ratio Alpha 5.61 Fetoprotein Subjective 24 Hr Interval Summary Free Text/Dictation Patient reports he is feeling relatively well. No hallucinations no tremors Constitutional: no complaints Respiratory: no complaints Cardiovascular: no complaints Gastrointestinal: no complaints Genitourinary: no complaints Exam/Review of Systems Vital Signs Vitals Vital Signs Date Temp Pulse Resp B/P (MAP) Pulse Ox O2 O2 Flow FiO2 Time Delivery Rate 02/23/18 59 12:26 02/23/18 99.3 18 117/65 95 Room Air 11:35 (82) Intake and Output 02/22/18 02/22/18 02/23/18 1515:00 23:00 07:00 IntakeIntake Total 620 ml 500 ml OutputOutput Total 850 ml 1650 ml BalanceBalance -230 ml -1150 ml Exam Constitutional: alert, oriented Respiratory: clear to auscultation, normal air movement Cardiovascular: regular rate and rhythm, nl pulses Gastrointestinal: soft, nl liver, spleen, non-tender Medications Medications Current Medications Sodium Chloride 1,000 ml @ 50 mls/hr Q20H IV Last administered on 02/23/18at 12:46; Admin Dose 50 MLS/HR; Start 02/21/18 at 20:07 IV Flush (NS 3 ml) 3 ml PER PROTOCOL IV ; Start 02/21/18 at 20:30 Ondansetron HCl (Zofran Inj) 4 mg Q6H PRN IV NAUSEA AND/OR VOMITING Last administered on 02/22/18at 14:25; Admin Dose 4 MG; Start 02/21/18 at 20:30 Metoclopramide HCl (Reglan) 10 mg Q6H PRN IV NAUSEA AND/OR VOMITING Last administered on 02/23/18at 06:32; Admin Dose 10 MG; Start 02/21/18 at 20:30 Pantoprazole (Protonix Iv) 40 mg DAILY@06 IV Last administered on 02/23/18at 06:06; Admin Dose 40 MG; Start 02/22/18 at 06:00 Thiamine HCl (Vitamin B1) 200 mg DAILY IM Last administered on 02/23/18 10:31; Admin Dose 200 MG; Start 02/21/18 at 21:30; Stop 02/26/18 at 21:29 Folic Acid (Folic Acid) 1 mg DAILY PO Last administered on 02/23/18at 10:31; Admin Dose 1 MG; Start 02/21/18 at 20:30 Octreotide Acetate 1 mg/ Dextrose 100 ml @ 5 mls/hr Q20H IV Last administered on 02/23/18 12:46; Admin Dose 5 MLS/HR; Start 02/21/18 at 23:00 Lorazepam (Ativan) 2 mg Q4H PRN IV severe withdrawl symptoms; Start 02/21/18 at 22:00 Chlordiazepoxide (Librium) 25 mg QID PO Last administered on 02/23/18at 10:31; Admin Dose 25 MG; Start 02/22/18 at 21:00; Stop 02/23/18 at 20:59 Chlordiazepoxide (Librium) 25 mg TID PO ; Start 02/23/18 at 21:00; Stop 02/24/18 at 20:59 Lorazepam (Ativan) 1 mg Q4H PRN IV WITHDRAWL SYMPTOMS Last administered on 02/23/18at 06:32; Admin Dose 1 MG; Start 02/21/18 at 22:30 Cyanocobalamin (Vitamin B12) 500 mcg DAILY PO Last administered on 02/23/18at 10:31; Admin Dose 500 MCG; Start 02/22/18 at 12:00 Mirtazapine (Remeron) 15 mg HS PO Last administered on 02/22/18at 21:02; Admin Dose 15 MG; Start 02/22/18 at 21:00 NABIL VYAS MD Feb 23, 2018 12:52
[2018-02-23] MEDS: MIRTAZAPINE 15 MG TAB PO SCH (21:13)
[2018-02-24] VITALS (11 sets, daily range): BP systolic 108–145; BP diastolic 68–88; PULSE 62–86; RESP 17–27
[2018-02-24] MEDS: LORAZEPAM 4 MG/ML VIAL IV PRN ×2 (04:24→08:24)
[2018-02-24] MEDS: PANTOPRAZOLE 40 MG INJ IV SCH (06:23)
--- NOTE | 2018-02-24 06:35 | NUR ---
End of Shift Summary No change in pt condition. See pt assessment and EMAR.
[2018-02-24] MEDS ORDERED: PROPOFOL 200 MG INJ ONE (07:00)
[2018-02-24] MEDS: SOD CHLORIDE 0.9% 1,000 ML IV SCH (08:07)
[2018-02-24] MEDS: CHLORDIAZEPOXIDE 25 MG CAP PO SCH ×2 (08:23→12:47)
[2018-02-24] MEDS: CYANOCOBALAMIN 500 MCG TAB PO SCH (08:23)
[2018-02-24] MEDS: FOLIC ACID 1 MG TAB PO SCH (08:24)
[2018-02-24] MEDS: THIAMINE 200 MG INJ IM SCH (09:00)
--- NOTE | 2018-02-24 10:07 | PN ---
Date/Time of Note Date/Time of Note DATE: 02/24/18 TIME: 10:06 Assessment/Plan VTE Prophylaxis Risk score (from Ns)>0 risk: 0 SCD applied (from Ns): Yes Pharmacological prophylaxis: NA/contraindicated Pharm contraindication: liver dx, thrombocytopenia Lines/Catheters IV C[facility]ter Type (from [facility] Peripheral IV Assessment/Plan Hospital Course SUBJECTIVE: Lying in bed comfortably. Currently denies any upper or lower GI bleed. Denies nausea, vomiting, or abdominal pain. He is scheduled for EGD and colonoscopy today. OBJECTIVE: Vital signs-see below PHYSICAL EXAM: Constitutional: Well-developed, adequately built, lying in bed comfortably. Psych: nl mood/affect, no complaints Head: atraumatic, normocephalic Eyes: nl conjunctiva, nl sclera ENMT: mucosa pink and moist, nl external ears & nose Neck: non-tender, supple Respiratory: clear to auscultation, normal air movement Cardiovascular: nl pulses, regular rate and rhythm Gastrointestinal: non-tender, soft, bowel sounds active in all 4 quadrants. Musculoskeletal/extremities: nl extremities to inspection, motor strength equal bilaterally, no focal deficit. Normal pulses,no cyanosis, no edema. Neurological: Alert oriented 3,nl speech, nl strength Skin: pale+. ASSESSMENT/PLAN: 27-year-old male with alcohol abuse, PTSD, alcoholic liver disease, esophageal variceal bleed, transferred from outside hospital where he initially presented with bloody stool, malaise, hematemesis. 1. GI bleed -Patient is scheduled for EGD/colonoscopy today. -Continue n.p.o. status. Continue IV fluids, PPI and octreotide drip. 2. Alcoholic liver cirrhosis. -No evidence of ascites. -Abstinence advised. 3. Pancytopenia of liver disease -Patient received a unit of plateletpheresis in preparation for EGD/colonoscopy. Otherwise, labs looks at his baseline at this time without any need for further transfusion. 4. Hyperlipidemia -Unfortunately, with his liver condition, he is not a candidate for statin. Continue fish oil supplementation and diet regimen. 5. Anxiety disorders -Currently stable. 6. EtOH abuse. -Cessation advised. -SW to provide patient with resources 7. Positive hepatitis A antibody. -Pending IgM to rule out active infection. DVT prophylaxis: SCDs PUD prophylaxis: Protonix CODE STATUS: Full code Diet: N.p.o. for procedure today. Once stable for p.o., patient can be started on a low-cholesterol, 2 g sodium diet. Disposition: Continue current medical management. Follow-up EGD/colonoscopy findings. If patient able to tolerate diet and labs remain stable, likely DC planning in a.m. Result Diagram: 02/24/18 0615 02/23/18 0620 Results 24hrs Laboratory Tests Test 02/24/18 06:15 02/24/18 07:01 White Blood Count 4.5 L Red Blood Count 3.64 L Hemoglobin 10.6 L Hematocrit 32.6 L Mean Corpuscular Volume 89.6 Mean Corpuscular Hemoglobin 29.1 Mean Corpuscular Hemoglobin Concent 32.5 Red Cell Distribution Width 15.7 H Platelet Count 45 #L Mean Platelet Volume 10.7 H Immature Granulocytes % 0.200 Neutrophils % Lymphocytes % Monocytes % Eosinophils % Basophils % Nucleated Red Blood Cells % 0.0 Immature Granulocytes # 0.010 Neutrophils # Lymphocytes # Monocytes # Eosinophils # Basophils # Nucleated Red Blood Cells # Lab Scanned Report BLOOD TRANSFUSION Exam/Review of Systems Vital Signs Vitals Vital Signs Date Temp Pulse Resp B/P (MAP) Pulse Ox O2 O2 Flow FiO2 Time Delivery Rate 02/24/18 98.2 86 19 145/88 96 Room Air 07:43 (107) Intake and Output 02/23/18 02/23/18 02/24/18 1515:00 23:00 07:00 IntakeIntake Total 440 ml 1025 ml 1100 ml OutputOutput Total 1100 ml 700 ml BalanceBalance 440 ml -75 ml 400 ml Medications Medications Current Medications Sodium Chloride 1,000 ml @ 50 mls/hr Q20H IV Last administered on 02/23/18at 12:46; Admin Dose 50 MLS/HR; Start 02/21/18 at 20:07 IV Flush (NS 3 ml) 3 ml PER PROTOCOL IV ; Start 02/21/18 at 20:30 Ondansetron HCl (Zofran Inj) 4 mg Q6H PRN IV NAUSEA AND/OR VOMITING Last administered on 02/22/18at 14:25; Admin Dose 4 MG; Start 02/21/18 at 20:30 Metoclopramide HCl (Reglan) 10 mg Q6H PRN IV NAUSEA AND/OR VOMITING Last administered on 02/23/18at 21:13; Admin Dose 10 MG; Start 02/21/18 at 20:30 Pantoprazole (Protonix Iv) 40 mg DAILY@06 IV Last administered on 02/24/18 06:23; Admin Dose 40 MG; Start 02/22/18 at 06:00 Thiamine HCl (Vitamin B1) 200 mg DAILY IM Last administered on 02/23/18 10:31; Admin Dose 200 MG; Start 02/21/18 at 21:30; Stop 02/26/18 at 21:29 Folic Acid (Folic Acid) 1 mg DAILY PO Last administered on 02/24/18 08:24; Admin Dose 1 MG; Start 02/21/18 at 20:30 Octreotide Acetate 1 mg/ Dextrose 100 ml @ 5 mls/hr Q20H IV Last administered on 02/23/18 12:46; Admin Dose 5 MLS/HR; Start 02/21/18 at 23:00 Lorazepam (Ativan) 2 mg Q4H PRN IV severe withdrawl symptoms; Start 02/21/18 at 22:00 Chlordiazepoxide (Librium) 25 mg TID PO Last administered on 02/24/18 08:23; Admin Dose 25 MG; Start 02/23/18 at 21:00; Stop 02/24/18 at 20:59 Lorazepam (Ativan) 1 mg Q4H PRN IV WITHDRAWL SYMPTOMS Last administered on 02/24/18 08:24; Admin Dose 1 MG; Start 02/21/18 at 22:30 Cyanocobalamin (Vitamin B12) 500 mcg DAILY PO Last administered on 02/24/18 08:23; Admin Dose 500 MCG; Start 02/22/18 at 12:00 Mirtazapine (Remeron) 15 mg HS PO Last administered on 02/23/18 21:13; Admin Dose 15 MG; Start 02/22/18 at 21:00 ANNMARIE MOSLEY NP Feb 24, 2018 10:07
[2018-02-24] MEDS: OCTREOTIDE 1 MG in DEXTROSE 5% 95 ML IV SCH (11:06)
--- NOTE | 2018-02-24 11:08 | HPN ---
Date/Time of Note Date/Time of Note DATE: 02/24/18 TIME: 11:05 Interval H&P Admission Note Pt. seen H&P reviewed: No system changes PENNY REYES Feb 24, 2018 11:07
[2018-02-24] MEDS ORDERED: PROPOFOL 20 ML ONE (11:47)
--- NOTE | 2018-02-24 12:53 | NUR ---
PT RECOVERED IN PACU AFTER GI PROCEDURE. IN STABLE CONDITION. TO TELE [facility]IA [email or web address] AND WITH THE TECH.
--- NOTE | 2018-02-24 14:43 | NUR ---
Pt arrived to unit from GI lab at around 1300, pt stated he would like to go home, explained that will call hospitalist to see if discharge orders can be given, per hospitalist, pt is no ready to be discharged. Pt notified, per pt he would like to sign the AMA form, explained the risks involved when leaving against medical advise, pt verbalized understanding, pt is alert, awake, oriented X4, AMA form given and signed, hospitalist Arely notified, and charge nurse made aware.
--- NOTE | 2018-02-25 08:58 | DS ---
Date/Time of Note Date/Time of Note DATE: 02/25/18 TIME: 08:55 Discharge Summary Admission/Discharge Info Admit Date/Time Feb 21, 2018 at 19:12 Discharge Date/Time Feb 24, 2018 at 14:26 (AGAINST MEDICAL ADVICE) Discharge Diagnosis Admitting diagnosis: 1. Hematemesis, likely secondary to underlying thrombocytopenia with gastritis/gastropathy. 2. Alcoholic liver cirrhosis. 3. Pancytopenia of liver disease 4. Hyperlipidemia 5. Anxiety disorders 6. EtOH abuse. 7. History of hepatitis A infection. Patient Condition: Stable Consults , gastroenterology Procedures 02/24/2018. EGD/colonoscopy. Please see reports for details. 02/22/2018. Abdominal ultrasound. IMPRESSION: Cirrhotic liver. No evidence of cholelithiasis, cholecystitis or biliary obstruction. Poor visualization of pancreas. Hospital Course 27-year-old male with alcohol abuse, PTSD, alcoholic liver disease, esophageal variceal bleed, transferred from outside hospital where he initially presented with bloody stool, malaise, hematemesis. Patient had endoscopy and colonoscopy on 02/24/2018. There was no evidence of variceal bleeding. Most likely hematemesis is due to underlying thrombocytopenia and portal gastropathy/gastritis. Recommendation was to keep patient on PPI. Patient continued to have restlessness, anxiety secondary to alcohol intoxication. As the plan was to keep patient in-house for slow tapering of Librium, monitoring labs/electrolytes, advancing diet, patient decided to leave AGAINST MEDICAL ADVICE. Despite our efforts, patient had decided to leave AGAINST MEDICAL ADVICE. Patient has normal mental status and full decisional capacity. Patient understood her condition and the risk of leaving AMA, including but not limited to permanent disability, etc., and had an opportunity to ask questions about own medical condition. The patient has been informed that the paient may return for care anytime and has been referred to primary care provider for follow-up as soon as possible. Patient was seen in collaboration with Dr. Bhat. Primary Care Provider Not On Staff Doctor ANNMARIE MOSLEY NP Feb 25, 2018 08:58
== END 2018-02-24 14:26 | disposition left against medical advice (07) | DRG 441 ==
LOC: TEL 19:12
PROVIDERS: ADMIT Internal Medicine; ATTEND Internal Medicine
PROC: 30233N1 Transfusion of Nonautologous Red Blood Cells into Peripheral Vein, Percutaneous Approach (ICD-10-PCS; 2018-02-22)
PROC: 0DJ08ZZ Inspection of Upper Intestinal Tract, Via Natural or Artificial Opening Endoscopic (ICD-10-PCS; principal; 2018-02-24 11:00)
DX: K76.6 Portal hypertension (principal); K31.89 Other diseases of stomach and duodenum; K29.71 Gastritis, unspecified, with bleeding; D61.818 Other pancytopenia; F10.129 Alcohol abuse with intoxication, unspecified; K70.30 Alcoholic cirrhosis of liver without ascites; F40.9 Phobic anxiety disorder, unspecified; E78.5 Hyperlipidemia, unspecified; K44.9 Diaphragmatic hernia without obstruction or gangrene
CPT/HCPCS: 36430; 71045; 76705; 80053; 80061; 82105; 83036; 83735; 84443; 85025; 85610; 85730; 86704; 86706; 86708; 86709; 86803; 86850; 86900; 86901; 87081; 87340; C9113; J2060; J2354; J2405; J2765; J3411; J7030; P9035